=== PATIENT | female | born 1985 | race Caucasian/White ===

== ENCOUNTER 2019-04-15 08:26 | Emergency (ER) | payer MEDICAID ==
[~2019-04-15] VITALS: Ht 162.6 cm; Wt 52.3 kg
[~2019-04-15 08:26] MED LIST: COLACE100 MG PO; DEMEROL50 MG PO; HYDROCODONE-APA1 TAB PO; IBUPROFEN800 MG PO; MULTI-DAY VITAM1 TAB PO; ZOLOFT25 MG PO; ZYRTEC10 MG PO
[2019-04-15 08:41] VITALS: Ht 162.6 cm; Wt 52.3 kg
[2019-04-15 09:20] LABS: BASOPHILS 0.2 % (0-2); EOSINOPHILS 0.9 % (0-7); HEMATOCRIT 38.9 % (36.0-48.0); HEMOGLOBIN 13.6 g/dL (12-16); IMMATURE GRANULOCYTES 0.2 % (0-5); MCH 31.3 pg (26.0-34.0); MCV 89.6 fL (80.0-100.0); MEAN PLATELET VOLUME 10.1 fL (7.4-10.4); MONOCYTES 6.6 % (2-11); NEUTROPHILS 68.1 % (40-80); RBC 4.34 10x6/uL (4.00-5.40); RDW 12.4 % (11.5-14.5); WBC 5.3 10x3/uL (4.8-10.8)
[2019-04-15 09:22] LABS: PLATELET COUNT 184 10x3/uL (130-400)
[2019-04-15 09:30] LABS: APPEARANCE CLEAR (CLEAR); BILIRUBIN NEGATIVE (NEGATIVE); COLOR STRAW (YELLOW); GLUCOSE NEGATIVE (NEGATIVE); KETONE NEGATIVE (NEGATIVE); NITRITE NEGATIVE (NEGATIVE); PROTEIN NEGATIVE (NEGATIVE); UROBILINOGEN NORMAL (NORMAL)
[2019-04-15 09:34] LABS: ALKALINE PHOSPHATASE 63 U/L (46-116); ALT (SGPT) 20 U/L (10-68); BILIRUBIN - TOTAL 0.32 mg/dL (0.2-1.3); CALC OSMOLALITY 278 mosm/kg (275-300); CALCIUM 9.5 mg/dL (8.5-10.1); CARBON DIOXIDE 27.9 mmol/L (21.0-32.0); CHLORIDE - SERUM 107 mmol/L (98-107); CREATININE - SERUM 0.8 mg/dL (0.6-1.3); GLUCOSE 87 mg/dL (74-106); POTASSIUM - SERUM 4.1 mmol/L (3.5-5.1); PROTEIN - SERUM 6.9 g/dL (6.4-8.2); SODIUM 142 mmol/L (136-145); UREA NITROGEN 3 mg/dL (7-18); eGFR NON AFRICAN AMERICAN 87 mL/min (90-120)
[2019-04-15 09:37] LABS: AMYLASE - SERUM 34 U/L (25-115); LIPASE 122 U/L (73-393)
[2019-04-15 09:38] LABS: TROPONIN-I < 0.017 ng/mL (0.000-0.060)
[2019-04-15] MEDS ORDERED: CYCLOBENZAPRINE10 MG PO (11:01)
[2019-04-15] MEDS ORDERED: IBUPROFEN800 MG PO (11:01)
[2019-04-15] MEDS ORDERED: ACETAMINOPHEN500 M1 PO (11:01)
[2019-04-15 11:25] VITALS: BP 101/60
== END 2019-04-15 11:26 | disposition home or self-care (01) ==
LOC: D.ER 08:26
PROVIDERS: Family Medicine
DX: R10.9 Unspecified abdominal pain (principal)